=== PATIENT | male | born 1985 | race Caucasian/White ===

== ENCOUNTER 2017-03-16 00:32 | Emergency (ER) | payer SELFPAY ==
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
[~2017-03-16 00:32] MED LIST: DIAZEPAM PO; NAPROXEN PO; NO MEDICATIONS
[2017-07-02] MEDS ORDERED: VOLTAREN75 MG PO (21:03)
== END 2017-03-16 01:53 | disposition home or self-care (01) ==
LOC: SED 00:32
DX: S60.221A Contusion of right hand, initial encounter (principal); Z87.442 Personal history of urinary calculi; Z88.0 Allergy status to penicillin; F17.200 Nicotine dependence, unspecified, uncomplicated; Z88.2 Allergy status to sulfonamides; W22.8XXA Striking against or struck by other objects, initial encounter
CPT/HCPCS: 73130; 99283